=== PATIENT | female | born 2000 | race Caucasian/White ===

== ENCOUNTER 2022-04-18 21:21 | Emergency (ER) | payer SELFPAY ==
[2022-04-18 21:22] VITALS: BP 130/81; PULSE 99; RESP 16; TEMP 36.6; O2SAT 97; BMI 30.2
--- NOTE | 2022-04-18 21:43 | ED.VIS.LOWEX ---
HPI History of Present Illness Chief Complaint: Lower Extremity Injury Informant: patient Occured/Mechanism Mechanism/Context: Yes fall Comment: twisted ankle while going down steps Onset/Context/Timing Onset: Today (JPTA) Context: Sudden Onset Timing: Continuous Quality of Pain: Aching Location: R ankle Current Severity: Moderate Maximum Severity: Moderate Worsened by: walking Relieved by: rest Associated Symptoms Associated Symptoms: Negative for Parasthesia, Weakness or Loss of Funtion Narrative Narrative: Twisted right ankle while going down the steps and heard/felt a crack, concerned she might of broken something. Able to ambulate but just barely. Using crutches on the way in here. [facility] Medical History (Updated 04/18/22 @ 22:[address] Adrián Silva MD) Ankle injury Medical History no medical history no medical history Home Medications NK 04/18/22 [History Last Taken Unknown] Allergy/AdvReac Type Severity Reaction Status Date / Time No Known Allergies Allergy Verified 04/18/22 21:24 Social History Smoking Status: Never smoker ROS ROS ED Constitutional Constitutional ED: Denies chills or fever(s) Musculoskeletal Musculoskeletal: Reports extremity pain; Denies neck pain Integumentary Denies Abrasions, rash or wounds Neurologic Neurologic: Denies paresthesias or weakness EXAM Physical Exam Const Vital Signs: 04/18/22 21:22 Temperature 97.9 F Temperature Source Temporal Pulse Rate 99 Respiratory Rate 16 Blood Pressure 130/81 H Blood Pressure Mean 97 Pulse Ox 97 Oxygen Delivery Method Room Air Positive well nourished and well developed General Appearance ED: well developed and NAD Neck full ROM and supple Back/Spine normal ROM and normal to inspection Extremity Extremity Narrative: Swelling and tenderness about the right lateral malleolus. No deformities. Nontender at the proximal fibula, medial malleolus, base of the fifth metatarsal, and elsewhere in the foot and leg. No subluxation when applying lateral forces to the foot. Neurovascularly intact distally. Neuro oriented x3, no focal motor deficits and no sensory deficits noted Sensorium / Orientation: alert Psych mental status grossly normal and thought process normal Skin no wounds Rashes: no rashes MDM MDM MDM Narrative Medical decision making narrative: Three-view x-ray series of the right ankle was obtained and on my interpretation it is negative for any acute fracture or dislocation. She be placed in an Aircast, she was given ibuprofen here, and appropriate discharge instructions follow-up as needed. Radiography Diagnostic Testing: Clinical Impression(s) from Imaging Studies Ankle X-Ray 04/18/22 21:50 IMPRESSION: Normal x-ray examination of the ankle. Electronically Signed: Kahlil Parikh MD at 22:04 EDT Reading Location ID and State: [id number] / , Service support , Discharge Plan Triage Chief Complaint: Lower Extremity Injury ED Provider: Adrián Silva Dx/Rx/DC Orders Clinical Impression: Sprain of ankle, right Instructions: ED Ankle Sprain (Adult) Prescriptions: No Action NK Primary Care Provider: Johanne Grimaldo Referrals: Clement Oneill DO [NON-STAFF] - Yobani Del Toro DO [STAFF PHYSICIAN] - 10-14 Days if not better Disposition Disposition: Home, Self Care
[2022-04-18] MEDS: Ibuprofen 600 MG Tablet PO (21:50)
--- NOTE | 2022-04-18 21:50 | RAD_ITS ---
STUDY: X-RAY - RIGHT ANKLE REASON FOR EXAM: Female, 21 years old. Pain after rolling ankle. TECHNIQUE: 3 view(s) of the ankle. COMPARISON: None. FINDINGS: Normal visualized distal tibia and fibula. Normal medial and lateral malleoli. Normal tibiotalar articulation and ankle mortise. Normal visualized talus and calcaneus. The visualized subtalar, talonavicular, calcaneocuboid and tarsal articulations are normal. The soft tissue structures are unremarkable. RAD/Ankle min 3 Views IMPRESSION: Normal x-ray examination of the ankle. Electronically Signed: Kahlil Parikh MD at 22:04 EDT Reading Location ID and State: [id number] / , Service support ,
[2022-04-18 22:27] VITALS: RESP 16; O2SAT 99
== END 2022-04-18 22:27 | disposition home or self-care (01) ==
PROVIDERS: Emergency Provider Emergency Medicine; PCP Pediatrics; Visit Provider Emergency Medicine
DX: S93.401A Sprain of unspecified ligament of right ankle, initial encounter (principal); W10.9XXA Fall (on) (from) unspecified stairs and steps, initial encounter
CPT/HCPCS: 73610; 99283